=== PATIENT | male | born 1970 | race Two or more races ===

== ENCOUNTER 2024-07-08 07:19 | Inpatient (IN) | payer OTHER ==
[~2024-07-08] VITALS: Ht 182.9 cm; Wt 136.1 kg
[2024-07-08] MEDS ORDERED: RESTORIL30 MG PO (07:40)
[2024-07-08] MEDS ORDERED: GABAPENTIN300 M2 PO (07:40)
[2024-07-08] MEDS ORDERED: TAMSULOSIN HCL0.4 MG PO (07:40)
[2024-07-08] MEDS ORDERED: LOSARTAN-HCTZ1 EACH PO (07:40)
[2024-07-08] MEDS ORDERED: MELOXICAM15 MG PO (07:41)
[2024-07-08] MEDS ORDERED: LORAZEPAM1 MG PO (07:41)
[2024-07-08] MEDS ORDERED: NABUMETONE750 MG PO (07:41)
[2024-07-08] MEDS ORDERED: MEPERIDINE HCL/PF 50 MG/ML VIAL IM ONE (08:30)
[2024-07-08] MEDS ORDERED: TAMSULOSIN HCL 0.4 MG CAP PO ONE ×2 (08:30→08:43)
[2024-07-08] MEDS ORDERED: HYOSCYAMINE SULFATE 0.125 MG TAB.SUBL SL ONE (08:30)
[2024-07-08] MEDS ORDERED: 0.9 % SODIUM CHLORIDE 1,000 ML IV ONE (08:30)
[2024-07-08] MEDS ORDERED: PROMETHAZINE HCL 25 MG/ML AMPUL IM ONE (08:30)
[2024-07-08] MEDS ORDERED: HYOSCYAMINE SULFATE 0.125 MG TAB.SUBL ONE (08:43)
[2024-07-08] MEDS ORDERED: PROMETHAZINE HCL 25 MG/ML AMPUL ONE (08:43)
[2024-07-08 09:54] LABS: URINE APPEARANCE Cloudy; URINE BILIRRUBIN Negative (NEGATIVE); URINE BLOOD Large; URINE COLOR Orange; URINE GLUCOSE Negative (NEGATIVE); URINE KETONE Negative (NEGATIVE); URINE LEUKOCYTE Large; URINE NITRATE Positive; URINE PROTEIN 30 (NEGATIVE); URINE UROBILINOGEN 0.2 E.U./dl
[2024-07-08 09:58] LABS: URINE EPITHELIAL CELLS 6.9 uL (0.0-38.8); URINE RBC 170.5 uL (0.0-20.8); URINE WBC 487.1 uL (0.0-23.2)
[2024-07-08 10:03] LABS: HEMATOCRIT 45.6 % (39.0-48.0); HEMOGLOBIN 15.4 g/dL (13-16.00); MEAN CELL VOLUME 87.2 fL (80.0-100.00); MEAN CORPUSCULAR HEMOGLOBIN 29.5 pg (27.00-32.0); MEAN CORPUSCULAR HGB CONC 33.8 g/dl (32.0-36.0); PLATELET COUNT 216 K/uL (150-450); RED BLOOD COUNT 5.23 M/uL (4.00-6.00)
[2024-07-08 10:26] LABS: URINE BACTERIA > 9821.5 uL (0.0-1933); URINE CAST 0.14 uL (0.0-1.40)
[2024-07-08 10:27] LABS: ALBUMIN 3.3 gm/dL (3.4-5.0); BILIRUBIN TOTAL 0.74 mg/dL (0.3-1.2); CALCIUM 8.5 mg/dL (8.5-10.1); CREATININE SERUM 1.24 mg/dL (0.70-1.30); GFR 60.75; GLOBULINA 3.7 G/DL (2.4-3.5); POTASSIUM 3.7 mEq/L (3.5-5.1)
[2024-07-08 10:28] LABS: INR 1.05; PARTIAL THROMBOPLASTIN TIME 27.3 SECONDS (22.0-34.0); PROTHROMBIN TIME 11.4 SECONDS (9.0-11.5)
[2024-07-08] MEDS ORDERED: CIPROFLOXACIN IN 5 % DEXTROSE 400 MG/200 ML PIGGYBAG IV ONE ×2 (11:00→11:03)
[2024-07-08] MEDS ORDERED: CEFTRIAXONE SODIUM 2,000 MG in 0.9 % SODIUM CHLORIDE 100 ML IV SCH (20:23)
[2024-07-08] MEDS ORDERED: ACETAMINOPHEN 325 MG TABLET PO PRN (20:30)
[2024-07-08] MEDS ORDERED: LOSARTAN/HYDROCHLOROTHIAZIDE 1 UDTAB TABLET PO SCH (20:31)
[2024-07-08] MEDS ORDERED: FAMOTIDINE/PF 20 MG in 0.9 % SODIUM CHLORIDE 8 ML IV PUSH SCH (21:00)
[2024-07-08] MEDS ORDERED: CEFTRIAXONE SODIUM 2,000 MG VIAL ONE (23:43)
[2024-07-08] MEDS ORDERED: FAMOTIDINE/PF 20 MG/2 ML VIAL ONE (23:43)
[2024-07-09 00:39] VITALS: BP 130/85; O2SAT 100
[2024-07-09 07:00] LABS: HEMATOCRIT 44.4 % (39.0-48.0); HEMOGLOBIN 15.1 g/dL (13-16.00); MEAN CELL VOLUME 86.6 fL (80.0-100.00); MEAN CORPUSCULAR HEMOGLOBIN 29.5 pg (27.00-32.0); PLATELET COUNT 230 K/uL (150-450); RED BLOOD COUNT 5.13 M/uL (4.00-6.00); RED CELL DISTRIBUTION WIDTH 15.2 % (11.5-14.5)
[2024-07-09] MEDS ORDERED: ACETAMINOPHEN 500 MG GEL..CAP PO PRN (07:15)
[2024-07-09 08:54] VITALS: BP 165/90; O2SAT 98
[2024-07-09] MEDS ORDERED: CLONAZEPAM 1 MG TABLET PO SCH (10:37)
[2024-07-09] MEDS ORDERED: ORPHENADRINE CITRATE 100 MG TABLET PO SCH (10:37)
[2024-07-09] MEDS ORDERED: TAMSULOSIN HCL 0.4 MG CAP PO SCH (10:37)
[2024-07-09] MEDS ORDERED: GABAPENTIN 800 MG TABLET PO SCH (10:37)
[2024-07-09] MEDS ORDERED: TRAZODONE HCL 50 MG TABLET PO SCH (10:38)
[2024-07-09 16:09] VITALS: BP 129/95; O2SAT 100
[2024-07-09] MEDS ORDERED: TEMAZEPAM 15 MG CAPSULE PO SCH (21:00)
[2024-07-10 02:56] VITALS: BP 152/75; O2SAT 96
[2024-07-10 08:48] VITALS: BP 107/67; O2SAT 97
[2024-07-10 15:15] VITALS: BP 120/76; O2SAT 96
[2024-07-11 03:05] VITALS: BP 127/80; O2SAT 95
[2024-07-11 05:02] LABS: HEMATOCRIT 44.4 % (39.0-48.0); HEMOGLOBIN 15.1 g/dL (13-16.00); MEAN CELL VOLUME 87.4 fL (80.0-100.00); MEAN CORPUSCULAR HEMOGLOBIN 29.7 pg (27.00-32.0); MEAN CORPUSCULAR HGB CONC 33.9 g/dl (32.0-36.0); PLATELET COUNT 263 K/uL (150-450); RED BLOOD COUNT 5.08 M/uL (4.00-6.00); RED CELL DISTRIBUTION WIDTH 14.7 % (11.5-14.5)
[2024-07-11 05:43] LABS: ALBUMIN 2.9 gm/dL (3.4-5.0); BILIRUBIN TOTAL 0.51 mg/dL (0.3-1.2); CALCIUM 8.7 mg/dL (8.5-10.1); CREATININE SERUM 1.37 mg/dL (0.70-1.30); GFR 54.15; GLOBULINA 3.4 G/DL (2.4-3.5); PHOSPHOROUS 4.3 mg/dL (2.5-4.9); POTASSIUM 4.31 mEq/L (3.5-5.1); TOTAL PROTEIN 6.3 gm/dL (6.4-8.2)
[2024-07-11 06:26] LABS: C-REACTIVE PROTEIN 9.6 MG/DL (0.00-0.29)
[2024-07-11] MEDS ORDERED: FINASTERIDE 5 MG TABLET PO SCH (09:00)
[2024-07-11] MEDS ORDERED: PANTOPRAZOLE SODIUM 40 MG TABLET.DR PO SCH (09:00)
[2024-07-11 09:17] VITALS: BP 102/57; O2SAT 96
[2024-07-11] MEDS ORDERED: levoFLOXacin IN DEXTROSE 5 % 100 ML IV SCH (17:00)
[2024-07-11 17:49] VITALS: BP 121/77; O2SAT 97
[2024-07-12] MEDS ORDERED: FINASTERIDE5 MG PO (07:54)
[2024-07-12] MEDS ORDERED: TAMS0.4C PO (07:54)
[2024-07-12] MEDS ORDERED: LEVOFLOXACIN500 MG PO (07:56)
[2024-07-12 09:40] VITALS: BP 117/77; O2SAT 95
== END 2024-07-12 17:56 | disposition home or self-care (01) | DRG 728 ==
LOC: ER 07:20 → MEDJ 20:21 → MEDI 07-09 15:01
PROVIDERS: General Practice; Internal Medicine Infectious Disease; ADMIT Internal Medicine; ATTEND Internal Medicine
PROC: BW21YZZ Computerized Tomography (CT Scan) of Abdomen and Pelvis using Other Contrast (ICD-10-PCS; principal; 2024-07-08)
PROC: 0T9B70Z Drainage of Bladder with Drainage Device, Via Natural or Artificial Opening (ICD-10-PCS; 2024-07-08)
DX: N41.0 Acute prostatitis (principal); N39.0 Urinary tract infection, site not specified; I10 Essential (primary) hypertension